=== PATIENT | male | born 1935 ===

== ENCOUNTER 2018-01-09 14:31 | Inpatient (IN) | payer MEDICARE, OTHER ==
[2018-01-09 14:39] VITALS: BMI 28.3
[2018-01-09] MEDS ORDERED: Morphine 4 mg/ml ISec IVP STA ×2 (15:01→17:19)
[2018-01-09] MEDS ORDERED: Sodium Chloride 0.9% 1,000 ML IV STA (15:01)
--- NOTE | 2018-01-09 15:06 | ED PDOC ---
Arrival/HPI - General Chief Complaint: Abdominal Pain Time Seen by Provider: 01/09/18 14:55 Historian: Patient - History of Present Illness Narrative History of Present Illness (Text): 01/09/18 15:04 pt p/w + sudden onset of left lower abd/groin region pain, at times the pain moves to lower left groin; pt states he has mild bowel/urinary urgency with the left groin/abd pain; pt states whenever he is moving/changing positions, severe left groin pain is noted at 10/10; pt went to see his PCP prior to ED arrival, and was instructed to come to ED for further eval; pt states no prior problems before; pt states no fever/chills/sweats, no cp/sob/palpitations, no vomiting, faint nausea, no numbness/tingling, no bowel changes/urinary changes, no gross bleeding, no fall/trauma/sick contact, no traveling auditor last BM was this morning pt denied rashes pt denied dizziness/LOC pt denied other complaints pt is here for further eval PCP: DR Paige Time/Duration: 24 hours Symptom Onset: Sudden Symptom Course: Unchanged Quality: Stabbing Severity Level: 10, Severe Activities at Onset: Rest, Other (with movement/exertion) Context: Home Past Medical History - Provider Review Nursing Documentation Reviewed: Yes - Travel History Have you recently traveled outside [place] w/in the past 3 mons?: No - Past History Past History: No Previous - Infectious Disease Hx of Infectious Diseases: None - Tetanus Immunization Tetanus Immunization: Unknown - Reproductive Currently Lactating: No - Cardiac Hx Hypertension: Yes Family/Social History - Physician Review Nursing Documentation Reviewed: Yes Family/Social History: No Known Family HX Smoking Status: Never Smoked Hx Alcohol Use: No Hx Substance Use: No Hx Substance Use Treatment: No Allergies/Home Meds Allergies/Adverse Reactions: Allergies No Known Allergies Allergy (Verified 06/21/16 13:35) Home Medications: Home Meds Medication Instructions Recorded Confirmed Allopurinol [Zyloprim] 100 mg PO DAILY 06/21/16 06/21/16 Methotrexate 10 mg PO QWK 06/21/16 06/21/16 Tamsulosin [Flomax] 0.4 mg PO DAILY 06/21/16 06/21/16 Review of Systems - Review of Systems Constitutional: Normal Eyes: Normal ENT: Normal Respiratory: Normal Cardiovascular: Normal Gastrointestinal: Abdominal Pain, Nausea Genitourinary Male: Normal Musculoskeletal: Normal Skin: Normal Neurological: Normal Endocrine: Normal Hemo/Lymphatic: Normal Psychiatric: Normal Physical Exam Vital Signs Reviewed: Yes Vital Signs Temp Pulse Resp BP Pulse Ox 01/09/18 17:05 96 H 18 172/84 H 95 01/09/18 14:59 98.8 F 105 H 19 182/93 H 95 Temperature: Afebrile Blood Pressure: Hypertensive Pulse: Tachycardic Respiratory Rate: Normal Appearance: Positive for: Well-Appearing, Non-Toxic, Uncomfortable, Other ( resting in bed, uncomfortable, moderate distress due to pain during examination ; alert/awake, cooperative, follows command with ease) Pain Distress: Moderate Mental Status: Positive for: Alert and Oriented X 3 - Systems Exam Head: Present: Atraumatic, Normocephalic Pupils: Present: PERRL, Other (no nystagmus, no photophobia, sclera anicteric) Extroacular Muscles: Present: EOMI Conjunctiva: Present: Normal Ears: Present: Normal Mouth: Present: Moist Mucous Membranes, Other (poor dentitions, no drooling/ stridor, no exudate/lesions, uvula/tongue are midline) Pharnyx: Present: Normal Nose (External): Present: Atraumatic Nose (Internal): Present: Normal Inspection Neck: Present: Normal Range of Motion, Trachea Midline, Other (no step off, no nuchal rigidity, no meningeal signs). No: Meningeal Signs, MIDLINE TENDERNESS Respiratory/Chest: Present: Clear to Auscultation, Good Air Exchange, Other ( CTA b/l, no w/r/r, no accessory muscle use noted, no tachypenia). No: Respiratory Distress, Accessory Muscle Use Cardiovascular: Present: Regular Rate and Rhythm, Normal S1, S2. No: Murmurs Abdomen: Present: Tenderness (left groin/lower abd region, no masses noted, no rebound/guarding), Normal Bowel Sounds, Other (well nourished male, + left lower groin tenderness, no lesions/masses/rebound/guarding/rigidity, no salvador' s sign, no mcburnye's point tenderness) Back: Present: Normal Inspection. No: CVA Tenderness, Midline Tenderness Upper Extremity: Present: Normal Inspection, Normal ROM, NORMAL PULSES, Neurovascularly Intact, Capillary Refill < 2s Lower Extremity: Present: Normal Inspection, Edema (b/l lower ext pitting edema +1/5, no connie's sign), NORMAL PULSES, Normal ROM, Neurovascularly Intact, Capillary Refill < 2 s Neurological: Present: GCS=15, CN II-XII Intact, Speech Normal Skin: Present: Warm, Normal Color, Other (cap refill < 1sec, no ulcerations, no petechiae, no rashes) Psychiatric: Present: Alert, Oriented x 3 Medical Decision Making ED Course and Treatment: 01/09/18 15:10 Impression: left groin pain/flank pain i have consider all the differential diagnosis regarding pt's chief medical complaints/clinical findings, including but are not limited to: left groin/ flank pain A/P: left groin/flank pain - labs - iv - ct - ua - supportive care - observe/reevaluation 01/09/18 17:05 pt continues to have left lower abd pain pt has not felt improved pt/family are made aware of pt's medical results agrees with admission/hospitalization 01/09/18 17:10 Dr Angel Paige is at bedside, evaluated patient, agrees with ED mgt/txt (yip placement), would like 1 dose of 40mg lasix while in the ED provided for the patient, and reassess h/h in the morning if the patient would need transfusion; will admit patient to his service and consult Dr Hallman (nephro) Re-evaluation Time: 15:16 Reassessment Condition: Unchanged - Lab Interpretations Lab Results: 01/09/18 15:35 01/09/18 15:35 Lab Results 01/09/18 15:35: pO2 224 H, VBG pH 7.12 L*, VBG pCO2 59.0, VBG HCO3 19.2 L, VBG Total CO2 21.0 L, VBG O2 Sat (Calc) 98.7 H, VBG Base Excess -10.7 L, VBG Potassium > 20.0 H*, Sodium 129.0 L, Chloride 103.0, Glucose 127 H, Lactate 1.8 , FiO2 21.0, Venous Blood Potassium > 20.0 H* 01/09/18 15:35: Sodium 139, Chloride 100, Potassium 4.6, Carbon Dioxide 21, Anion Gap 22 H, BUN 62 H, Creatinine 5.3 H, Est GFR ( Amer) 13, Est GFR ( Non-Af Amer) 10, Random Glucose 125 H, Calcium 9.7, Total Bilirubin 0.3, AST 30 , ALT 24, Alkaline Phosphatase 57, Total Protein 7.5, Albumin 4.3, Globulin 3.2 , Albumin/Globulin Ratio 1.3, Lipase 672 H 01/09/18 15:35: PT 11.9, INR 1.04, APTT 33.9 01/09/18 15:35: WBC 10.3 D, RBC 2.45 L, Hgb 8.4 L D, Hct 24.6 L, MCV 100.4, MCH 34.3, MCHC 34.1, RDW 14.4, Plt Count 190, MPV 10.6, Gran % 81.6 H, Lymph % ( Auto) 10.6 L, [place] % (Auto) 6.6 H, Eos % (Auto) 1.1 L, Baso % (Auto) 0.1, Gran # 8.38 H, Lymph # (Auto) 1.1 L, [place] # (Auto) 0.7 H, Eos # (Auto) 0.1, Baso # ( Auto) 0.01 01/09/18 15:05: Urine Color Yellow, Urine Appearance Sl cloudy, Urine pH 6.0, Ur Specific [place] 1.020, Urine Protein >=300 H, Urine Glucose (UA) 100 H, Urine Ketones Negative, Urine Blood Trace-intact H, Urine Nitrate Negative, Urine Bilirubin Negative, Urine Urobilinogen 0.2, Ur Leukocyte Esterase Negative , Urine RBC Negative, Urine WBC 1 - 3, Ur Epithelial Cells 0 - 2 I have reviewed the lab results: Yes Interpretation: Abnormal lab values (decr H/H; abnl Bun/creat (worse)) - RAD Interpretation Narrative RAD Interpretations (Text): Report Date : 01/09/2018 15:54:12 PROCEDURE: CT Abdomen and Pelvis without intravenous contrast Dictator : Karen Soliman MD IMPRESSION: 1. No acute abdominal or pelvic abnormality. Fat containing left inguinal hernia. 2. No evidence of nephrolithiasis or obstructive uropathy. 3. Multilevel degenerative disc disease, worse at L4-5 with degenerative grade 1 anterior listhesis of L4 on L5. Radiology Orders: 01/09/18 15:02 ABD & PELVIS W/O PO OR IV CONT [CT] Stat Cook Dinner: Radiologist - Medication Orders Current Medication Orders: Sodium Chloride (Sodium Chloride 0.9%) 1,000 mls @ 100 mls/hr IV .Q10H STA Stop: 01/10/18 01:00 Last Admin: 01/09/18 15:14 Dose: 100 mls/hr eMAR Start Stop Document 01/09/18 15:14 RG (Rec: 01/09/18 15:15 [id number] Intravenous Solution Start Date 01/09/18 Start Time 15:14 Discontinued Medications Morphine Sulfate (Morphine) 4 mg IVP STAT STA Stop: 01/09/18 15:02 Last Admin: 01/09/18 15:13 Dose: 4 mg MAR Pain Assessment Document 01/09/18 15:13 RG (Rec: 01/09/18 15:14 [id number] Pain Reassessment Is this a pain reassessment? Yes Presence of Pain Presence of Pain Yes Location Left, Right or Bilateral Left Description Description Constant Pain Behavior Guarding Irritability IVP Administration Document 01/09/18 15:13 RG (Rec: 01/09/18 15:14 [id number] Charges for Administration # of IVP Administrations 1 Ondansetron HCl (Zofran Inj) 4 mg IVP STAT STA Stop: 01/09/18 15:02 Last Admin: 01/09/18 15:14 Dose: 4 mg IVP Administration Document 01/09/18 15:14 (Rec: 01/09/18 15:14 [id number][facility] Charges for Administration # of IVP Administrations 1 Disposition/Present on Arrival - Present on Arrival Any Indicators Present on Arrival: No History of DVT/PE: No History of Uncontrolled Diabetes: No Urinary Catheter: No History of Decub. Ulcer: No History Surgical Site Infection Following: None - Disposition Have Diagnosis and Disposition been Completed?: Yes Diagnosis: Acute on chronic renal insufficiency, Anemia, Intractable abdominal pain, Weakness, Acute pancreatitis, Elevated blood pressure reading Disposition: HOSPITALIZED Disposition Time: 17:10 Patient Plan: Admission, Telemetry Patient Problems: Current Active Problems Problem Status Onset Acute on chronic renal insufficiency Acute Anemia Acute Intractable abdominal pain Acute Weakness Acute Condition: STABLE Discharge Instructions (ExitCare): Weakness (ED), Hypotension (ED), Hypertension (ED) Referrals: Jagdish Paige MD [Primary Care Provider] - Follow up with primary Forms: [employer] ([place])
[2018-01-09 15:35] LABS: URINE BILIRUBIN NEGATIVE (NEGATIVE); URINE BLOOD TRACE-INTACT (NEGATIVE); URINE GLUCOSE (UA) 100 mg/dL (NEGATIVE); URINE LEUKOCYTE ESTERASE NEGATIVE Leu/uL (NEGATIVE); URINE PROTEIN >=300 mg/dL (<30 mg/dL); URINE UROBILINOGEN 0.2 E.U./dL (<1 E.U./dL)
[2018-01-09 15:37] LABS: URINE APPEARANCE SL CLOUDY (CLEAR); URINE COLOR YELLOW (YELLOW)
[2018-01-09 15:40] LABS: VENOUS BLOOD GAS BASE EXCESS -10.7 mmol/L (0.0-2.0); VENOUS BLOOD GAS PO2 224 mm/Hg (30-55)
[2018-01-09 15:41] LABS: BASO # 0.01 K/mm3 (0.0-2.0); BASO % 0.1 % (0.0-3.0); EOS # 0.1 (0.0-0.7); EOS % 1.1 % (1.5-5.0); GRAN # 8.38 (1.4-6.5); GRAN % 81.6 % (50.0-68.0); HEMOGLOBIN 8.4 g/dL (14.0-18.0); LYMPH # 1.1 (1.2-3.4); LYMPH % 10.6 % (22.0-35.0); MEAN CELL VOLUME 100.4 fl (80.0-105.0); MEAN CORPUSCULAR HEMOGLOBIN 34.3 pg (25.0-35.0); MEAN CORPUSCULAR HGB CONC 34.1 g/dl (31.0-37.0); MEAN PLATELET VOLUME 10.6 fl (7.0-11.0); MONO # 0.7 (0.1-0.6); MONO % 6.6 % (1.0-6.0); RBC 2.45 10^6/uL (3.5-6.1); RED CELL DISTRIBUTION WIDTH 14.4 % (11.5-14.5); WHITE BLOOD COUNT 10.3 10^3/ul (4.5-11.0)
[2018-01-09 15:48] LABS: URINE EPITHELIAL CELLS 0 - 2 /hpf (0-5); URINE RBC NEGATIVE /hpf (0-2)
[2018-01-09 15:49] LABS: PROTHROMBIN TIME 11.9 SECONDS (9.4-12.5)
[2018-01-09 15:50] LABS: INR 1.04 (0.93-1.08); PARTIAL THROMBOPLASTIN TIME 33.9 Seconds (25.1-36.5)
[2018-01-09 15:52] LABS: ALB/GLOB RATIO 1.3 (1.1-1.8); ALBUMIN 4.3 g/dL (3.0-4.8); CALCIUM 9.7 mg/dL (8.4-10.5)
[2018-01-09 15:53] LABS: VENOUS BLOOD PH 7.12 (7.32-7.43)
--- NOTE | 2018-01-09 15:55 | CT ---
PROCEDURE: CT Abdomen and Pelvis without intravenous contrast HISTORY: Severe left lower groin pain, r/o stones? COMPARISON: None. TECHNIQUE: CT scan of the abdomen and pelvis was performed without administration of intravenous contrast. Oral contrast was not administered. Coronal and sagittal reformatted images were obtained. Radiation dose: Total exam DLP = Total exam DLP = 468.44 mGy-cm. This CT exam was performed using one or more of the following dose reduction techniques: Automated exposure control, adjustment of the mA and/or kV according to patient size, and/or use of iterative reconstruction technique. FINDINGS: LOWER THORAX: The visualized right lung is clear. There is patchy airspace disease in the left lower lobe and small left pleural effusion LIVER: The liver is normal in size. There are simple in the hepatic dome and right lobe, the largest in the right lobe measures 2.7 cm. GALLBLADDER AND BILE DUCTS: There are no calcified gallstones. . PANCREAS: Normal in size without ductal dilatation or calcifications. SPLEEN: Normal in sinus. ADRENALS: No discrete nodule. KIDNEYS AND URETERS: There is mild bilateral renal cortical atrophy. No hydronephrosis or nephrolithiasis. There are simple cortical cysts in both kidneys, the largest in the right lower pole measures 4.4 x 2.9 cm. VASCULATURE: No aortic aneurysm. BOWEL: The small bowel loops are normal in caliber. The colon is unremarkable. No bowel dilatation or obstruction. APPENDIX: Normal appendix. PERITONEUM: No free fluid. No free air. LYMPH NODES: No enlarged lymph nodes. BLADDER: Grossly normal in appearance. REPRODUCTIVE: There is mild enlargement of the prostate gland. BONES: No acute fracture. Multilevel degenerative disc disease, worse at L4-5 with degenerative grade 1 anterior listhesis of L4 on L5. OTHER FINDINGS: There is a fat containing left inguinal hernia. IMPRESSION: 1. No acute abdominal or pelvic abnormality. Fat containing left inguinal hernia. 2. No evidence of nephrolithiasis or obstructive uropathy. 3. Multilevel degenerative disc disease, worse at L4-5 with degenerative grade 1 anterior listhesis of L4 on L5.
[2018-01-09] MEDS: Sodium Chloride 0.45% 1,000 ML IV SCH (20:58)
[2018-01-09 21:24] LABS: CREATININE,RANDOM URINE 22 mg/dL
[2018-01-09 21:41] LABS: IRON 20 ug/dL (45-180)
--- NOTE | 2018-01-09 21:47 | CON ---
DATE: 01/09/2018 The patient admitted for Dr. Jagdish Paige. REFERRING PHYSICIAN: Dr. Paige. REASON FOR CONSULTATION: Evaluation of the patient known to me from outpatient followup with a history of chronic kidney disease stage III, who presents with acute renal failure. HISTORY OF PRESENT ILLNESS: The patient is a pleasant 82-year-old [place] male who spent most of the winter in the [facility]. The patient had returned home, had blood work which was done which showed a creatinine well above his baseline levels. The patient has a history of chronic kidney disease stage III with a baseline creatinine in the mid to upper 2 range. History of hypertension, history of hypertensive nephrosclerosis, history of gout; history of BPH, on Flomax therapy; history of hyperlipidemia, history of anemia secondary to chronic kidney disease, history of secondary hyperparathyroidism, history of rheumatoid arthritis, who states he has been doing relatively well. He had routine blood work which showed an elevated creatinine into the [address] Paige and I spoke about this and we suggested that the patient come to the hospital for evaluation. The patient only presented to the hospital after having significant left lower quadrant pain. He was noted in the emergency room today to have a BUN of 62 with a creatinine of 5.3, double his baseline levels. The patient denies taking any anti-inflammatories or nonsteroidals. He has had no recent contrast or dye studies. He does take medications for rheumatoid arthritis given to him by his hog sticker, but he denies taking any anti-inflammatories. He had used methotrexate in the past, and he is using a sulfa containing medication at present. The patient states that he has not noted any decline in urine output. He has no uremic symptoms. He is not taking any BROOKS inhibitors or angiotensin receptor blockers. We are asked to help evaluate the patient for his acute renal failure. A CT of the abdomen and pelvis was done through the emergency room, which showed no active nephrosis. Renal cortical atrophy. No acute abdominal pelvic abnormality. He does have a fat containing left inguinal hernia. He does have multilevel degenerative disk disease in the lumbar spine. PAST MEDICAL HISTORY: Significant for chronic kidney disease stage III, thought to be secondary to hypertensive nephrosclerosis. A 24-hour urine was done in 2017, showed a creatinine clearance of 30 mL per minute with 1.14 g of protein in the urine. Renal artery Doppler studies were negative in 2017. His cystatin C clearance in 2017 was 32 mL per minute. Full serologies were done, which showed a positive rheumatoid factor consistent with his known diagnosis of rheumatoid arthritis, a mild elevation of his P-ANCA titer. Remainder of the serologies were negative. History of anemia secondary to chronic kidney disease, hyperlipidemia; BPH, on Flomax therapy; history of gout, with no recent attacks, on allopurinol therapy; history of secondary hyperparathyroidism, and history of hypertension with hypertensive nephrosclerosis. MEDICATIONS AT HOME: Include that of Flomax, Norvasc, Symbicort, Lasix 20 mg a day, and allopurinol 150 mg a day. The patient is off methotrexate and he does take other medications for his rheumatoid arthritis, possibly a sulfa based medication. ALLERGIES: THE PATIENT HAS NO KNOWN ALLERGIES TO MEDICATIONS. SOCIAL HISTORY: No history of cigarette smoking. History of alcohol use. 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 FAMILY HISTORY: Positive for stroke and hypertension. No history of chronic kidney disease. REVIEW OF SYSTEMS: GENERAL: The patient states appetite has been reduced over the last several days but no significant weight loss. ENT: Denies any hearing or visual problems. PULMONARY: No shortness of breath. No COPD. No emphysema, bronchitis or pneumonia. CARDIAC: No known history of coronary artery disease. GASTROINTESTINAL: Abdominal pain as noted above. Loose stools x1 day, but no diarrhea. In general, no constipation. No nausea or vomiting. GENITOURINARY: History of chronic kidney disease, stage III as a baseline, history of BPH. ENDOCRINE: No history of diabetes. Positive history of secondary hyperparathyroidism. MUSCULOSKELETAL: DJD, lumbar sacral spine. NEUROLOGICAL: No history of CVA, TIA, seizures or syncope. HEMATOLOGY ONCOLOGY: History of anemia secondary to chronic kidney disease. PSYCHIATRIC: History is negative. PHYSICAL EXAMINATION: GENERAL: The patient is currently seen in the emergency room, lying on a stretcher, with family at the bedside. VITAL SIGNS: Blood pressure presently is 145/87; when he came into the emergency room, it was 182/93. Temperature 98.8. Respiratory rate 19, pulse ox of 95%. HEENT: Exam shows him to be normocephalic, atraumatic. Conjunctivae are pale. Sclerae nonicteric. Pupils equal, round and reactive to light and accommodation. Extraocular muscles are intact. Posterior pharynx is normal. NECK: Supple. No neck vein distention. No thyromegaly. No lymphadenopathy. No bruits. CHEST: Clear to auscultation and percussion. No rales or rhonchi or wheezing. CARDIOVASCULAR: Shows a regular rate and rhythm, without murmurs, rubs or gallops. No S3. No S4. BACK: No CVAT. No spinal tenderness. ABDOMEN: Mild discomfort on palpation of left lower quadrant. No rebound or guarding. Mild to moderate distention. GENITOURINARY: Bustos catheter in place. EXTREMITIES: Show no lower extremity cyanosis, clubbing or edema. Distal lower extremity pulses are 1 to 2+ plus bilaterally. NEUROLOGICAL: Shows him to be alert and oriented x3, with no gross focal motor or sensory deficits. No asterixis. LABORATORY DATA AND IMAGING: Abdominal and pelvic CT scan showed bilateral cortical atrophy consistent with chronic medical renal disease, possibly secondary to known hypertensive nephrosclerosis, no hydronephrosis. Left inguinal hernia. DJD of lumbosacral spine. No chest x-ray is available for comment. Labs, CBC, white blood cell count 10.3, hemoglobin low at 8.4, platelet count is 190,000. Coags are normal. Blood gas showed a venous blood gas at 7.12, with a pO2 of 224, bicarbonate of 19. Lactate level was 1.8. Chemistries showed a sodium of 139, potassium 4.6, chloride 100, with a CO2 of 21. Anion gap was 22, BUN 62, with a baseline BUN in the low 40 range. Creatinine 5.3, with a baseline creatinine in the mid the 2 to 2.7 range. Glucose 125. Calcium 9.7. Liver enzymes are normal. Bilirubin is normal. Albumin is 4.3. Lipase is mildly elevated at 672. Urine, 4+ protein. One to 3 white blood cells per high-power field; no red blood cells. Microbiology, no specimens available for comment. ASSESSMENT: 1. Acute renal failure superimposed on chronic kidney disease, stage III. This is in a patient, who was clinically felt to have a history of stable hypertensive nephrosclerosis. The patient's CT scan of his kidneys are consistent with that diagnosis. He has bilateral cortical atrophy secondary to longstanding hypertension. It is uncertain what has caused his creatinine to double since his last stable baseline lab back in July 2017 when creatinine was in the 2.5 to 2.7 range. The patient had been receiving different medications through his hog sticker, but we are not certain what these medications are. The patient had been on methotrexate in the past, this has been discontinued. He is taking a sulfa containing compound. Perhaps he has acute interstitial nephritis secondary to medication. I will obtain a urine [place] stain; however, there are no white blood cells in his urine. The patient in the outpatient setting did have a positive P-ANCA; I will repeat these studies along with complement values, along with a rheumatoid factor, along with an ASHLYN. Perhaps the patient has a progressive form of glomerular nephritis, but again this is less likely. There is no evidence for obstructive uropathy. I agree with starting the patient on IV fluid hydration, but this does not appear to be dehydration. I will obtain urine lytes and urine [place] stain. Once the patient's creatinine hits the baseline, we will obtain 24-hour urine to establish his renal reserve. 2. History of hypertension. The patient may be treated with calcium channel moses therapy. Avoid angiotensin-converting enzyme inhibitors, angiotensin receptor blockers. 3. History of gout. The patient may be given low-dose allopurinol 100 mg a day if necessary. 4. History of benign prostatic hypertrophy. No evidence for urinary retention, and no evidence for obstructive uropathy. 5. History of hyperlipidemia. The patient is on diet therapy alone. He is not receiving statin therapy. 6. History of anemia. This has worsened with his worsening renal parameters. This is likely secondary to chronic kidney disease. Obtain iron, TIBC, ferritin, B12, folate. We will start the patient on oral iron therapy and on Aranesp. 7. History of secondary hyperparathyroidism. Obtain a vitamin D level and PTH level, and if phosphorus levels are elevated, start the patient on binder therapy. 8. History of rheumatoid arthritis. The patient will bring in his outpatient medication given to him by his hog sticker. PLAN: 1. Follow accurate I's and O's. 2. Daily labs. 3. Discussed with the patient and his family, the possibility of considering renal replacement therapy should his BUN and creatinine continued to worsen. 4. It is unlikely that doing a renal biopsy will be helpful as the patient has significant cortical atrophy. However, this is a possibility pending results from serologies. 5. Continue calcium channel moses therapy for blood pressure control and again avoid BROOKS inhibitors, angiotensin receptor blockers. 6. Agree with IV fluid hydration. 7. Iron and Aranesp as noted above. 8. Close renal followup. 9. I had discussed this case with Dr. Paige prior to the patient's admission to the hospital. Thank you for letting me partake and share in the care of our mutual patient. Tirso Malone MD
[2018-01-09 21:50] LABS: % IRON SATURATION 9 % (20-55); TOTAL IRON BINDING CAPACITY 227 ug/dL (261-462)
[2018-01-10 06:16] LABS: ALB/GLOB RATIO 1.3 (1.1-1.8); ALBUMIN 3.5 g/dL (3.0-4.8); CALCIUM 9.1 mg/dL (8.4-10.5)
[2018-01-10 06:21] LABS: BASO # 0.01 K/mm3 (0.0-2.0); BASO % 0.1 % (0.0-3.0); EOS # 0.2 (0.0-0.7); EOS % 2.1 % (1.5-5.0); GRAN # 6.27 (1.4-6.5); GRAN % 73.3 % (50.0-68.0); HEMOGLOBIN 7.3 g/dL (14.0-18.0); LYMPH # 0.9 (1.2-3.4); MEAN CELL VOLUME 101.4 fl (80.0-105.0); MEAN CORPUSCULAR HEMOGLOBIN 33.5 pg (25.0-35.0); MEAN PLATELET VOLUME 11.1 fl (7.0-11.0); MONO # 1.2 (0.1-0.6); MONO % 13.5 % (1.0-6.0); PLATELET COUNT 196 10^3/uL (120.0-450.0); RBC 2.18 10^6/uL (3.5-6.1); RED CELL DISTRIBUTION WIDTH 14.6 % (11.5-14.5); WHITE BLOOD COUNT 8.6 10^3/ul (4.5-11.0)
[2018-01-10 06:28] LABS: FREE T4 1.78 ng/dL (0.78-2.19)
[2018-01-10] MEDS ORDERED: Albuterol-Ipratrop 3 mg / 0.5 (3 ml) UD IH PRN (09:05)
[2018-01-10] MEDS: Iron Complex Polysacch 150mg Cap PO SCH (09:17)
[2018-01-10] MEDS: Sodium Chloride 0.45% 1,000 ML IV SCH (09:20)
[2018-01-10] MEDS ORDERED: Darbepoetin Alfa 60 mcg/ml Inj SC ONE (10:00)
[2018-01-10 11:52] LABS: COMPLEMENT C4 41.4 mg/dL (14.0-44.0)
[2018-01-10] MEDS ORDERED: Sodium Chloride 0.9% 1,000 ML IV SCH (12:00)
[2018-01-10] MEDS ORDERED: metOLazone 5 MG TAB PO SCH (12:00)
[2018-01-10] MEDS ORDERED: Sodium Chloride 0.45% 1,000 ML IV SCH (13:00)
[2018-01-10 13:03] LABS: FOLATE > 20.0 ng/mL
[2018-01-10] MEDS ORDERED: Pneumococcal 23-Valent Vaccine IM ONE (13:24)
--- NOTE | 2018-01-10 19:11 | PN ---
DATE: 01/10/2018 SUBJECTIVE: The patient is seen lying in bed. He is in [id number] respiratory distress. He is on nasal cannula. He complains of shortness of breath on exertion. He complains of some nausea. He denies any vomiting. PHYSICAL EXAMINATION: GENERAL: Elderly male lying in bed. Vital signs: Blood pressure 160/87, heart rate 92, respiratory rate 20, temperature 98.6. HEENT: Normocephalic, atraumatic, positive pallor. NECK: Supple, no JVD. LUNGS: Bilateral equal air entry, bilateral equal expansion, no rales. CARDIAC: S1, S2, regular rate and rhythm, no murmur, no rub. ABDOMEN: Obese, distended, soft, nontender, bowel sounds present. EXTREMITIES: No lower extremity edema. INTAKE AND OUTPUT: Not charted. LABORATORY DATA: WBC 8.6, hemoglobin 7.3, hematocrit 22, platelets 196. Sodium 136, potassium 4.3, chloride 101, CO2 of 25, BUN 64, creatinine 5.4, glucose 130, calcium 9.1, phosphorus 6.5, magnesium 1.8. Iron saturation 9, iron 20, ferritin 302. Albumin 3.5, globulin 2.8. Amylase 168, lipase 453. Vitamin D 20. Urinalysis: Yellow, slightly cloudy, pH 6, specific 1.020, protein greater than 300, glucose 100, blood trace intact, nitrite negative, leukocyte esterase negative. Urine eosinophils negative, urine creatinine 22, urine sodium 108. T3 of 133, T4 of 141. CT of the abdomen and pelvis, no acute abdominal or pelvic abnormality, no evidence of nephrolithiasis or obstructive uropathy, multilevel disk degeneration. CURRENT MEDICATIONS: Iron, Lasix 40 IV daily given this morning, amlodipine 5, half-normal saline at 60, Aranesp 60 mcg given this morning, Lasix 40 mg IV push given last night. ASSESSMENT: 1. Acute kidney injury superimposed on chronic kidney disease stage III/IV. 2. Acute on chronic anemia. 3. Secondary hyperparathyroidism. 4. History of rheumatoid arthritis. 5. Left lower quadrant pain. 6. History of hypertension. 7. History of gout. 8. History of benign prostatic hypertrophy. PLAN: 1. Currently unclear etiology of acute kidney injury, appears to be ATN. We will order nuclear renal scan. 2. Discontinue IV fluids since the patient is in modest respiratory distress. 3. Continue IV Lasix daily. 4. Get outpatient records from Rheumatology. 5. Avoid nephrotoxins. 6. Avoid hypotension. 7. Discussed with patient, may need renal replacement therapy. 8. I will start him on intravenous iron. 9. The patient received Aranesp yesterday. 10. Follow up workup sent for vasculitis. 11. Check intact PTH levels. Lucy Thomson MD
--- NOTE | 2018-01-10 22:11 | CARD ---
APPROVED REPORT EKG Measurement Heart [id number] <Conclusion> Sinus rhythm with 1st degree AV block Anterior infarct, age undetermined Abnormal ECG
--- NOTE | 2018-01-10 23:13 | PN ---
DATE: DAILY PROGRESS NOTE I would like the progress note to be read as follows, if you would be so kind. SUBJECTIVE: The patient is an 82-year-old male who presented to the emergency room yesterday complaining of sudden onset of left lower abdominal/groin pain. The pain was rather severe. The patient rated it as 10/10. He was also found to be in acute renal failure, therefore, the patient was admitted. When seen today, Monday, the patient is receiving a blood transfusion as his hemoglobin on admission was 8.3 yesterday, this morning fell to 7.3, so receiving 2 units of packed red blood cells. The patient is sleeping comfortably, but easily arousable. He denies any further abdominal pain. He says the pain simply comes and goes and at this moment, he is comfortable. His lungs show diffuse rales bilaterally one-half to three quarters to the way up. His heart is regular. Abdomen is soft and nontender. There is no right or left lower quadrant tenderness today as opposed to yesterday. He is afebrile. Blood pressure is 150/85 and heart rate is 91. He is currently receiving his second unit of packed red blood cells. The patient received 40 mg of Lasix earlier today. He is receiving 20 mg of Lasix prior to each unit of blood to be transfused. Of note is the amylase and lipase is also elevated on admission, the amylase of 168 and lipase of 453. CAT scan of the abdomen showed no acute abdominal or pelvic abnormality. There was a fat-containing left inguinal hernia. There was no evidence of nephrolithiasis or obstructive uropathy. There was multilevel degenerative disk disease worse at L4-L5 with a degenerative grade 1 anterolisthesis on L4-L5. There were simple cysts found and both kidneys. The largest was in the right lower pole measuring 4.4 x 2.9 cm, so the patient is being transfused for now. Workup is still in progress. Renal consultation has been requested of Dr. Malone. Davy Paige MD
[2018-01-11 06:33] LABS: MEAN CORPUSCULAR HEMOGLOBIN 32.6 pg (25.0-35.0); MEAN CORPUSCULAR HGB CONC 34.1 g/dl (31.0-37.0); MEAN PLATELET VOLUME 10.8 fl (7.0-11.0); RBC 2.88 10^6/uL (3.5-6.1); WHITE BLOOD COUNT 6.7 10^3/ul (4.5-11.0)
[2018-01-11 06:41] LABS: HEMOGLOBIN 9.4 g/dL (14.0-18.0); MEAN CELL VOLUME 95.8 fl (80.0-105.0)
[2018-01-11 07:33] LABS: ALB/GLOB RATIO 1.1 (1.1-1.8); ALBUMIN 3.3 g/dL (3.0-4.8); CALCIUM 9.3 mg/dL (8.4-10.5)
--- NOTE | 2018-01-11 08:36 | HP ---
CHIEF COMPLAINT: Left lower quadrant discomfort and acutely worsening renal failure. HISTORY OF PRESENT ILLNESS: This is a pleasant 82-year-old [place] man I have known for many years, who was seen in the office approximately 2 weeks ago. Blood work at that time showed a rise in his BUN from the baseline of 2.4 up to 4.1. The patient was volume overloaded, complaining of some exertional dyspnea, shortness of breath. He was advised admission to the hospital, but declined, so attempts were made treating him on an outpatient basis, by increasing his Lasix and close followup. He was seen again 4 days later. Labs were drawn. Creatinine is 5.1. I spoke with the patient today, he was feeling poorly with left-sided lower quadrant abdominal pain and therefore admission was advised for further evaluation workup. PAST MEDICAL HISTORY: Significant for hypertension for many years and rheumatoid arthritis. He was on methotrexate and doing rather well. Approximately 1 year ago, when his BUN and creatinine started to raise, creatinine peaked over 2, the methotrexate was discontinued. He was started on a sulfa-based agent by his it sales consultant. He was seen by Renal and followed periodically. The treatment at that times consisted mostly of avoiding nephrotoxic agents. He reports no new changes in his lifestyle or eating pattern. He did not take any recent antiinflammatory medicines. Past history is also significant for benign prostatic hypertrophy and a distant history of the gout. CURRENT MEDICATIONS: At home include Flomax; Norvasc; furosemide 20 mg now raised to 60 mg daily and allopurinol. He also takes a sulfa-based RA medicine. He recently took friend's Symbicort, Spiriva, and montelukast. On the recommendation of his thinking that his respiratory symptoms were more asthma related , not volume overload. ALLERGIES: HE HAS NO KNOWN ALLERGIES TO MEDICATIONS. SOCIAL HISTORY: He does not smoke or drink alcohol, although there is a history of smoking in the distant past. 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 REVIEW OF SYSTEMS: Significant only for rheumatoid arthritis as noted above. PHYSICAL EXAMINATION: GENERAL: Patient was seen in the emergency room this evening. He is awake, alert, clear and appropriate. His family as the is at the bedside. HEAD AND NECK: Unremarkable. Conjunctivae are pink. Mucous membranes are moist. Neck is supple without masses. LUNGS: Show good aeration, right and left with basilar rales bilaterally. HEART: Regular. Not tachycardic. ABDOMEN: Somewhat overweight and protuberant. There is no bladder dullness to percussion and I cannot palpate the bladder, although on CAT scan it appears a bit distended. EXTREMITIES: Show trace +1 soft edema, both lower extremities up to the thigh, which is an improvement from 8 days ago on initial presentation. IMPRESSION: 1. Abdominal pain and left lower quadrant pain. 2. Umbilical hernia noted on CT scan. 3. Acute worsening of renal function with volume overload. 4. Hypertension. 5. Rheumatoid arthritis. 6. Gout. 7. Benign prostatic hypertrophy. PLAN: The patient was admitted to the medical floor, diuretics would be given. Surgical consult for abdominal pain and Renal consult would be called. I doubt any surgical intervention would be needed to address this umbilical hernia, but more for the purpose of the abdominal symptoms. I will discuss the case with Dr. Vanessa tomorrow. We will follow the lead from Renal regarding the workup of his acute change in renal status. We will add Bustos catheter just to rule out any obstructive uropathy factors. Jagdish Paige MD MTDD
[2018-01-11] MEDS: Iron Complex Polysacch 150mg Cap PO SCH (09:28)
--- NOTE | 2018-01-11 11:41 | RAD ---
HISTORY: chest congestion, COMPARISON: Chest radiographs 01/03/2018. FINDINGS: LUNGS: Patchy infiltrate is appreciate the left perihilar region extending inferiorly to the upper segment retrocardiac space. No right-sided infiltrate identified. Elevated right hemidiaphragm again evident. PLEURA: Diminished left pleural effusion. No right pleural effusion. No pneumothorax bilaterally. CARDIOVASCULAR: Cardiomegaly appears stable. Stable pulmonary vascular pattern appears somewhat accentuated by under penetration. OSSEOUS STRUCTURES: No significant abnormalities. VISUALIZED UPPER ABDOMEN: Normal. OTHER FINDINGS: None. IMPRESSION: Interval infiltrate left perihilar and retrocardiac zones with diminished left pleural effusion. No right-sided infiltrate. Stable cardiomegaly.
[2018-01-11] MEDS ORDERED: cefTRIAXone 500 MG in Sodium Chloride 0.9% 50 ML IVPB SCH (16:15)
[2018-01-11 16:24] VITALS: RESP 20
--- NOTE | 2018-01-11 16:28 | NM ---
PROCEDURE: HISTORY: Acute and chronic renal insufficiency. COMPARISON: 02/14/2017 renal ultrasound. Summary of findings on the comparison examination: Bilateral renal cysts measuring up to 4.1 cm on the right 2.2 cm on the left. Echogenic renal parenchyma bilaterally may be seen in setting of medical renal disease. 02/21/2017 renal artery duplex sonography. Summary of findings on the comparison examination: No sonographically significant stenoses identified 01/09/2018. CT abdomen and pelvis. Summary of findings on the comparison examination:There is mild bilateral renal cortical atrophy. No hydronephrosis or nephrolithiasis. There are simple cortical cysts in both kidneys, the largest in the right lower pole measures 4.4 x 2.9 cm TECHNIQUE: 12.4 mCi technetium 99 M Mag 3 FINDINGS: Right Kidney: Flow component: Qualitatively diminished perfusion right kidney. High background is identified. Time to peak: 4.5 minutes Peak to T1/2 Peak: 39 minutes Left Kidney: Flow component: Diminished perfusion of the left kidney compared to the right. High background activity a consistent with a component of renal insufficiency. Time to peak: 5.5 minutes Peak to T1/2 Peak: 41.4 minutes Split Renal Function: Right kidney 52.6 % Left kidney 47.4 % IMPRESSION: Scintigraphic findings consistent with chronic medical renal disease. No evidence of obstructive uropathy. Approximately symmetrical split renal function.
--- NOTE | 2018-01-11 19:09 | PN ---
DATE: 01/11/2018 SUBJECTIVE: The patient is seen lying in bed. He is awake. He is alert. He reports he has not had a bowel movement in 2 days. He complains of some shortness of breath. He denies any nausea, vomiting or diarrhea. He denies any urinary complaints. PHYSICAL EXAMINATION: GENERAL: Elderly male sitting in bed. VITAL SIGNS: Blood pressure 155/86, heart rate 90, respiratory rate 20, temperature 98.4. HEENT: Normocephalic, atraumatic. NECK: Supple, no JVD. LUNGS: Bilateral equal air entry, bilateral equal expansion, no rales. CARDIAC: S1 and S2, regular rate and rhythm, no murmur, no rub. ABDOMEN: Obese, distended, soft, nontender, bowel sounds present. EXTREMITIES: No lower extremity edema. INTAKE AND OUTPUT: 1310/2000. LABORATORY DATA: WBC 6.7, hemoglobin 9.4, hematocrit 28, platelets 159. Sodium 138, potassium 3.9, chloride 101, CO2 25, BUN 66, creatinine 5.7, glucose 85, calcium 9.3, albumin 3.3. Urine eosinophils negative. Urine creatinine 22. Urine sodium 108. Nuclear renal scan showing no evidence of obstructive uropathy, symmetrical function, delayed perfusion, diminished perfusion consistent with chronic medical renal disease. Chest x-ray, interval infiltrate in the left perihilar region. No right-sided infiltrate. CURRENT MEDICATIONS: Ceftriaxone 1 g daily, iron, Lasix 40 IV daily, amlodipine 5, Protonix, Zithromax. The patient received 2 units of blood. ASSESSMENT: 1. Acute kidney injury superimposed on chronic kidney disease stage IV, etiology of acute kidney injury appears to be acute tubular necrosis. 2. Severe anemia, [id number] (?). 3. History of rheumatoid arthritis, recent change in medications (?). 4. Hypertension. 5. Proteinuria. PLAN: 1. Repeat urinalysis. 2. Follow up proteinuria workup ordered by Dr. Malone. 3. Continue Lasix. 4. No uremic signs and symptoms at this time. 5. Continue oral iron, the patient has received 2 units of blood and 200 mg of IV iron, which should be sufficient. 6. Gait records from Rheumatology. Lucy Thomson MD [facility] # [id number]
[2018-01-11] MEDS ORDERED: Vancomycin 1gm in NS 250ml 1 GM/250 ML BAG IVPB STA (22:35)
[2018-01-11] MEDS ORDERED: Cefepime 1gm in NS 100ml 1 GM/100 ML BAG IVPB SCH (22:45)
[2018-01-11 23:32] LABS: URINE BILIRUBIN NEGATIVE (NEGATIVE); URINE BLOOD MODERATE (NEGATIVE); URINE GLUCOSE (UA) 250 mg/dL (NEGATIVE); URINE LEUKOCYTE ESTERASE SMALL Leu/uL (NEGATIVE); URINE PROTEIN >=300 mg/dL (<30 mg/dL); URINE UROBILINOGEN 0.2 E.U./dL (<1 E.U./dL)
[2018-01-11 23:35] LABS: URINE APPEARANCE CLEAR (CLEAR); URINE COLOR YELLOW (YELLOW)
[2018-01-11 23:54] LABS: URINE BACTERIA SMALL (NEG); URINE EPITHELIAL CELLS 0 - 2 /hpf (0-5); URINE WBC 15 - 20 /hpf (0-6)
[2018-01-12] MEDS ORDERED: Pantoprazole 40 mg EC Tab PO SCH (06:00)
[2018-01-12 06:25] LABS: HEMOGLOBIN 9.9 g/dL (14.0-18.0); MEAN CELL VOLUME 96.3 fl (80.0-105.0); MEAN CORPUSCULAR HEMOGLOBIN 33.2 pg (25.0-35.0); MEAN CORPUSCULAR HGB CONC 34.5 g/dl (31.0-37.0); MEAN PLATELET VOLUME 10.2 fl (7.0-11.0); RBC 2.98 10^6/uL (3.5-6.1); RED CELL DISTRIBUTION WIDTH 16.1 % (11.5-14.5)
[2018-01-12 06:54] LABS: ALB/GLOB RATIO 1.2 (1.1-1.8); ALBUMIN 3.5 g/dL (3.0-4.8); CALCIUM 9.2 mg/dL (8.4-10.5)
[2018-01-12] MEDS: Iron Complex Polysacch 150mg Cap PO SCH (09:38)
[2018-01-12] MEDS ORDERED: Magnesium Hydroxide Susp 30 ml UD PO PRN (09:48)
[2018-01-12] MEDS ORDERED: Azithromycin 500MG/NS 250ml 500 MG/250 ML BAG IVPB SCH (10:00)
--- NOTE | 2018-01-12 10:51 | PN ---
DATE: LOCATION: Patient is in room 361. SUBJECTIVE: This morning, he was going down for a nuclear scan. Earlier this morning, a repeat chest x-ray was ordered by nurse practitioner showing an infiltrate. Patient will be started on antibiotics, and Infectious Disease called to consult. I spoke with the patient's at the bedside. We also looked at the results of the scan and discussed with Renal. Obviously, the pneumonia infection will take precedence in first of immediate treatment. I will look at the films with the radiologist to rule out volume overload and CHF since on presentation small bilateral effusions were noted on CT and patient's white count is normal, although despite fevers yesterday. Jagdish Paige MD
--- NOTE | 2018-01-12 12:13 | RAD ---
HISTORY: f/u on infiltrate? vs volume overload COMPARISON: No prior. TECHNIQUE: Chest PA and lateral FINDINGS: LUNGS: Interval improvement and left upper lobe infiltrate apparent on prior study January 11, 2018. PLEURA: No significant pleural effusion identified. No pneumothorax apparent. CARDIOVASCULAR: Cardiomegaly, pulmonary vascular congestion. OSSEOUS STRUCTURES: No significant abnormalities. VISUALIZED UPPER ABDOMEN: Normal. OTHER FINDINGS: None. IMPRESSION: Improving left upper lobe infiltrate. Underlying pulmonary vascular congestion/ cardiomegaly.
[2018-01-12 18:20] VITALS: BP 182/97; PULSE 92; TEMP 99; O2SAT 94
--- NOTE | 2018-01-12 19:28 | CP.PCM.CON ---
History of Present Illness - History of Present Illness History of Present Illness: 82 year old male with PMH of HTN, rheumatoid arthritis, chronic renal failure came in to complaining initially of left groin pain but has also been complaining of cough with whitish phlegm for the past 2-3 days. He denies fever or chills, no sore throat, no rhinorrhea, no headache or dizziness, no chest pain, no abdominal pain, no diarrhea, no dysuria. CT scan of the abdomen and pelvis did not show acute pathology but CXR suggest pneumonia. Infectious Diseases consult is requested to further evaluate and manage. Review of Systems - Review of Systems All systems: reviewed and no additional remarkable complaints except (as per HPI ) Past Patient History - Infectious Disease Hx of Infectious Diseases: None - Tetanus Immunizations Tetanus Immunization: Unknown - Past Social History Smoking Status: Never Smoked - CARDIAC Hx Cardiac Disorders: Yes Hx Hypertension: Yes - PULMONARY Hx Respiratory Disorders: No - NEUROLOGICAL Hx Neurological Disorder: No - RENAL Hx Chronic Kidney Disease: Yes Hx Renal Failure: Yes Other/Comment: renal insufficiency - ENDOCRINE/METABOLIC Hx Endocrine Disorders: No - HEMATOLOGICAL/ONCOLOGICAL Hx Blood Disorders: Yes Hx Anemia: Yes - INTEGUMENTARY Hx Dermatological Problems: No - MUSCULOSKELETAL/RHEUMATOLOGICAL Hx Musculoskeletal Disorders: Yes Hx Degenerative Joint Disease: Yes Hx Falls: No Hx Gout: Yes - GASTROINTESTINAL Hx Gastrointestinal Disorders: Yes (INGUINAL HERNIA) - GENITOURINARY/GYNECOLOGICAL Hx Genitourinary Disorders: Yes - PSYCHIATRIC Hx Psychophysiologic Disorder: No Hx Substance Use: No - SURGICAL HISTORY Hx Surgeries: No - ANESTHESIA Hx Anesthesia: Yes Hx Anesthesia Reactions: No Hx Malignant Hyperthermia: No Meds Home Medications: Home Medication List Medication Instructions Recorded Confirmed Type Acetaminophen [Tylenol 325mg tab] 650 mg PO Q4H PRN tab 01/12/18 Rx Furosemide [Lasix] 40 mg IV DAILY vial 01/12/18 Rx Iron Polysaccharide [Ferrex-150] 150 mg PO DAILY cap 01/12/18 Rx Magnesium Hydroxide [Milk Of 30 ml PO DAILY PRN udc 01/12/18 Rx Magnesia] Pantoprazole [Protonix EC Tab] 40 mg PO 0600 ect 01/12/18 Rx SulfaSALAzine [Azulfidine] 500 mg PO BID tab 01/12/18 Rx amLODIPine [Norvasc] 5 mg PO DAILY tab 01/12/18 Rx traMADol [Ultram] 50 mg PO TID PRN tab 01/12/18 Rx Allergies/Adverse Reactions: Allergies Allergy/AdvReac Type Severity Reaction Status Date / Time No Known Allergies Allergy Verified 01/10/18 11:56 - Medications Medications: Current Medications Amlodipine Besylate (Norvasc) 5 mg PO DAILY [facility] Last Admin: 01/11/18 09:28 Dose: 5 mg Furosemide (Lasix) 40 mg IV DAILY [facility] Last Admin: 01/11/18 09:29 Dose: 40 mg Azithromycin (Zithromax 500mg In Ns) 500 mg in 250 mls @ 167 mls/hr IVPB DAILY LJ PRN Reason: Protocol Cefepime HCl (Maxipime 1gm) 1 gm in 100 mls @ 100 mls/hr IVPB Q24H LJ PRN Reason: Protocol Stop: 01/20/18 22:46 Last Admin: 01/12/18 00:17 Dose: 100 mls/hr Pantoprazole Sodium (Protonix Ec Tab) 40 mg PO 0600 [facility] Last Admin: 01/12/18 05:34 Dose: 40 mg Polysaccharide Iron Complex (Ferrex-150) 150 mg PO DAILY [facility] Last Admin: 01/11/18 09:28 Dose: 150 mg Physical Exam - Constitutional Appears: Non-toxic, Chronically Ill - Head Exam Head Exam: NORMAL INSPECTION - Neck Exam Neck exam: Negative for: Meningismus - Respiratory Exam Respiratory Exam: Decreased Breath Sounds - Cardiovascular Exam Cardiovascular Exam: +S1, +S2 - GI/Abdominal Exam GI & Abdominal Exam: Soft. absent: Tenderness Results - Vital Signs Recent Vital Signs: Last Vital Signs Temp 98.8 F 01/11/18 23:59 Pulse 85 01/12/18 05:07 Resp 20 01/11/18 23:59 BP 160/76 H 01/12/18 00:18 Pulse Ox 99 01/11/18 23:59 - Labs Result Diagrams: 01/12/18 05:30 01/12/18 05:30 Labs: Laboratory Results - last 24 hr 01/09/18 01/11/18 01/11/18 20:30 05:30 05:30 WBC 6.7 D RBC 2.88 L Hgb 9.4 L D Hct 27.6 L MCV 95.8 D MCH 32.6 MCHC 34.1 RDW 17.0 H Plt Count 159 MPV 10.8 ESR 142 H Sodium 138 Potassium 3.9 Chloride 101 Carbon Dioxide 25 Anion Gap 16 BUN 66 H Creatinine 5.7 H Est GFR ( Amer) 12 Est GFR (Non-Af Amer) 10 Random Glucose 85 Calcium 9.3 Total Bilirubin 0.4 AST 30 ALT 20 Alkaline Phosphatase 44 Total Protein 6.2 Albumin 3.3 Globulin 2.9 Albumin/Globulin Ratio 1.1 PTH Intact Whole Molec 240 H Urine Color Urine Appearance Urine pH Ur Specific [place] Urine Protein Urine Glucose (UA) Urine Ketones Urine Blood Urine Nitrate Urine Bilirubin Urine Urobilinogen Ur Leukocyte Esterase Urine RBC Urine WBC Ur Epithelial Cells Urine Bacteria 01/11/18 01/12/18 23:14 05:30 WBC 8.0 RBC 2.98 L Hgb 9.9 L Hct 28.7 L MCV 96.3 MCH 33.2 MCHC 34.5 RDW 16.1 H Plt Count 180 MPV 10.2 ESR Sodium Potassium Chloride Carbon Dioxide Anion Gap BUN Creatinine Est GFR ( Amer) Est GFR (Non-Af Amer) Random Glucose Calcium Total Bilirubin AST ALT Alkaline Phosphatase Total Protein Albumin Globulin Albumin/Globulin Ratio PTH Intact Whole Molec Urine Color Yellow Urine Appearance Clear Urine pH 6.0 Ur Specific [place] 1.025 Urine Protein >=300 H Urine Glucose (UA) 250 H Urine Ketones Negative Urine Blood Moderate H Urine Nitrate Negative Urine Bilirubin Negative Urine Urobilinogen 0.2 Ur Leukocyte Esterase Small H Urine RBC 2 - 5 Urine WBC 15 - 20 Ur Epithelial Cells 0 - 2 Urine Bacteria Small Assessment & Plan - Assessment and Plan (Free Text) Plan: Assessment consider sepsis due to left sided pneumonia HTN rheumatoid arthritis chronic renal failure Plan Started the patient on a dose of IV Vancomycin and started cefepime and Zithromax pending blood, sputum cx, PCT; reviewed CXE will monitor clinically
--- NOTE | 2018-01-12 23:18 | PN ---
DATE: 01/12/2018 SUBJECTIVE: The patient is seen lying in bed. He is awake. He is alert. He feels better today. He is less short of breath. He is not using any oxygen. PHYSICAL EXAMINATION: GENERAL: Elderly male lying in bed. VITAL SIGNS: Blood pressure 153/82, heart rate 81, respiratory rate 20, temperature 99.3, T-max is 100.3. HEENT: Normocephalic, atraumatic, positive pallor. NECK: Supple, no JVD. LUNGS: Bilateral equal air entry, bilateral equal expansion, no rales. CARDIAC: S1 and S2, regular rate and rhythm, no murmur, no rub. ABDOMEN: Obese, distended, soft, nontender, bowel sounds present. EXTREMITIES: No lower extremity edema. INTAKE AND OUTPUT: 1670/2915 LABORATORY DATA: WBC 8, hemoglobin 9.9, hematocrit 29, platelets 180. Sodium 137, potassium 3.8, chloride 98, CO2 25, BUN 73, creatinine 5.9, glucose 90, calcium 9.2, albumin 3.5. Repeat urinalysis; yellow, clear, pH 6.0, specific gravity 1.025, protein greater than 300, glucose 250, blood moderate, rheumatoid factor of 47 IU/ml. CCP greater than 250, complements normal, ASHLYN negative. Chest x-ray; left upper lobe infiltrate, underlying pulmonary vascular congestion. ASSESSMENT/PLAN: 1. Acute kidney injury superimposed on chronic kidney disease stage IV. 2. Nephrotic-range proteinuria. 3. History of rheumatoid arthritis. 4. Hypertension. 5. Hyperlipidemia. 6. Severe anemia. 7. History of benign prostatic hypertrophy. PLAN: 1. No uremic signs and symptoms at this time. Therefore, no plans for renal replacement therapy. 2. A 24-hour urine for protein and creatinine clearance. 3. Continue empiric antibiotics for pneumonia. 4. Continue to diurese cautiously. 5. Continue to monitor very closely. Lucy Thomson MD
--- NOTE | 2018-01-13 22:39 | DS ---
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 He has hypertension and rheumatoid arthritis. He has been taking methotrexate for years and recently approximately one or two years ago developed worsening renal insufficiency. He is followed by renal mergers and acquisitions consultant for over the past several months, in fact was last seen in August with creatinine around 2.6 as his baseline. He was treated with conservative measures and renal protection. Seems to be doing well until he presented to the office one week before this admission complaining of some shortness of breath and generalized volume overload anasarca. He was treated with increased dose of Lasix, seen a few days later, the edema had improved, but repeat labs shows his creatinine which had gone up to 4 is now up to 5.7. The patient deferred admission at that point, but a few days later, he was more weak, more short of breath, and agreed to come to the emergency room. In the emergency room, he was volume overloaded with creatinine over 5. He was admitted to telemetry floor, a Bustos catheter was placed because on CT of the abdomen, the bladder appeared distended and this would certainly help us to rule out any obstructive uropathy. COURSE OF HOSPITAL STAY: The patient was admitted to the monitoring bed because of the volume overload status, seen by his manager graphic Dr. Malone, treated with diuretics. Had a chest x-ray, there is a question of infiltrate versus bilateral effusions and volume overload; however, the patient ran fevers of 101. So, he was cultured and started on antibiotics. He improved quite a bit the following day, and is today ready for transfer to transitional care unit. We will be able to discontinue the Bustos catheter, discontinue telemetry, provide some milk of magnesia for constipation, get him out of bed, engage in physical therapy and order a repeat chest x-ray to follow up on that infiltrate versus effusion and volume overload (CHF from renal failure). ready for TCU and I will follow him there as well as renal mergers and acquisitions consultant will follow him there. FINAL DISCHARGE DIAGNOSES: 1. Acute renal failure. 2. Chronic renal failure. 3. Fever with possible infiltrate or pneumonia. 4. Rheumatoid arthritis. 5. Hypertension. Jagdish Paige MD [facility] # [id number]
[2018-01-16 05:52] LABS: ANCA SCREEN NEGATIVE (NEGATIVE)
== END 2018-01-12 18:50 | DRG 682 ==
LOC: ED 14:31 → ERH 17:09 → 3RNO 01-10 11:23
PROVIDERS: ADMIT Internal Medicine; ATTEND Internal Medicine
PROC: 3E0F7GC Introduction of Other Therapeutic Substance into Respiratory Tract, Via Natural or Artificial Opening (ICD-10-PCS; principal; 2018-01-10)
DX: N17.9 Acute kidney failure, unspecified (principal); J18.9 Pneumonia, unspecified organism; N18.4 Chronic kidney disease, stage 4 (severe); I12.9 Hypertensive chronic kidney disease with stage 1 through stage 4 chronic kidney disease, or unspecified chronic kidney disease; M06.9 Rheumatoid arthritis, unspecified; M10.9 Gout, unspecified; D63.1 Anemia in chronic kidney disease; N25.81 Secondary hyperparathyroidism of renal origin; M51.36 Other intervertebral disc degeneration, lumbar region; N40.0 Benign prostatic hyperplasia without lower urinary tract symptoms; N28.1 Cyst of kidney, acquired; E87.70 Fluid overload, unspecified; E78.5 Hyperlipidemia, unspecified; K40.90 Unilateral inguinal hernia, without obstruction or gangrene, not specified as recurrent

== ENCOUNTER 2018-01-12 18:50 | Inpatient (IN) | payer MEDICARE, OTHER ==
[2018-01-12] MEDS ORDERED: Magnesium Hydroxide Susp 30 ml UD PO PRN (19:54)
[2018-01-13] MEDS: Pantoprazole 40 mg EC Tab PO SCH (05:30)
[2018-01-13] MEDS: Azithromycin 500MG/NS 250ml 500 MG/250 ML BAG IVPB SCH (05:31)
[2018-01-13] MEDS: Cefepime 1gm in NS 100ml 1 GM/100 ML BAG IVPB SCH (05:31)
[2018-01-13 07:31] LABS: HEMOGLOBIN 10.1 g/dL (14.0-18.0); MEAN CELL VOLUME 94.5 fl (80.0-105.0); MEAN CORPUSCULAR HEMOGLOBIN 32.6 pg (25.0-35.0); MEAN CORPUSCULAR HGB CONC 34.5 g/dl (31.0-37.0); MEAN PLATELET VOLUME 10.2 fl (7.0-11.0); RBC 3.1 10^6/uL (3.5-6.1); RED CELL DISTRIBUTION WIDTH 15.6 % (11.5-14.5)
[2018-01-13 07:46] LABS: ALB/GLOB RATIO 1.2 (1.1-1.8); ALBUMIN 3.7 g/dL (3.0-4.8); CALCIUM 9.3 mg/dL (8.4-10.5)
[2018-01-13] MEDS: Iron Complex Polysacch 150mg Cap PO SCH (09:28)
[2018-01-13 20:46] LABS: URINE CREATININE 40.5 mg/dL
--- NOTE | 2018-01-13 21:31 | PN ---
DATE: 01/13/2018 SUBJECTIVE: The patient was seen on Monday morning in room 302, bed 1 of the [facility] of [facility]. He is sitting out of bed in a chair, comfortable, awake, alert and clear. He feels much better. He looks clinically improved. He is not short of breath, not tachypneic. He states he was walking with physical therapy without difficulty. Followup chest x-ray shows improvement of volume overload and effusions although the pulmonary vasculature remains congestive. PHYSICAL EXAMINATION: LUNGS: Sounds are good in right and left, hoarse breath sounds and rales have improved dramatically. ABDOMEN: Feels a bit protuberant. EXTREMITIES: Really show no edema. IMPRESSION: [id number] renal failure, rheumatoid arthritis, hypertension. PLAN: Continue on TCU, IV Lasix, follow labs periodically and we will discuss with Renal senior sales consultant. Jagdish Paige MD
--- NOTE | 2018-01-13 23:54 | CON ---
DATE: 01/13/2018 CHIEF COMPLAINT: Cough and shortness of breath times about 1-day duration. LOCATION: Patient in bed, in no acute distress. Patient was seen this morning in room 313; he has been moved to 302. HISTORY OF PRESENT ILLNESS: This is an 82-year-old male with past medical history of hypertension, rheumatoid arthritis, and chronic renal failure. Initially came in for left groin pain, also has been complaining of cough and whitish phlegm for 2 days' duration. He did not have any fevers and no headache. No abdominal pain. No diarrhea or constipation. REVIEW OF SYSTEMS: A 12 point review of systems was performed. PAST MEDICAL HISTORY: Significant for chronic renal failure, rheumatoid arthritis, and hypertension. Patient is a never smoker. PAST SURGICAL HISTORY: Noncontributory. MEDICATIONS: Patient's home medications are noted to include iron and Lasix and Tylenol. ALLERGIES: PATIENT HAS NO KNOWN ALLERGIES. PHYSICAL EXAMINATION: VITAL SIGNS: Patient has a temperature of 100.3, heart rate of 92, respiratory rate of 24, blood pressure is 120/70, and oxygen saturation was 94%. HEENT: Unremarkable. NECK: Supple. LUNGS: Have decreased breath sounds. HEART: Normal S1 and S2. ABDOMEN: Soft, nontender. No rebound. No guarding. No masses. LABORATORY DATA: Laboratory examination revels the patient's white count is 8000, hemoglobin of 10, platelets of 184. Chemistry reveals a BUN of 80, creatinine of 5.7, procalcitonin is 0.4. Urinalysis is noted, immunology is noted. Serology, HIV is negative, urine for Legionella is negative. Blood culture is negative. Sputum cultures are pending. ASSESSMENT AND PLAN: An 82-year-old male with hypertension, rheumatoid arthritis, chronic renal failure, who was admitted with cough and positive chest x-ray, hypoxia, fevers, tachycardia. 1. Severe sepsis with left healthcare-associated pneumonia, hypertension, rheumatoid arthritis, and chronic renal failure. Having intermittent vancomycin and cefepime and Zithromax. Pending weaver-cultures. Initial workup results were followed closely with you. Nando Clemens MD [facility] # [id number]
--- NOTE | 2018-01-14 00:35 | CON ---
DATE: 01/13/2018 REASON FOR CONSULTATION: Anemia, hyponatremia, hypokalemia. HISTORY OF PRESENT ILLNESS: An 82-year-old male known to me from recent evaluation on the medical site where the patient was admitted with shortness of breath, cough, dyspnea on exertion, acute kidney injury. He was found to have pneumonia. He was found to have decompensated congestive heart failure. Etiology of his acute kidney injury was not entirely clear. The patient was treated with IV antibiotics. He was treated with Lasix. He is now transferred to the Transitional Care Unit. Consultation is requested today because of hyponatremia, hypokalemia, and anemia. PAST MEDICAL AND SURGICAL HISTORY Hypertension, hypertensive nephrosclerosis, chronic kidney disease stage III/IV, BPH, rheumatoid arthritis, acute kidney injury, chronic anemia. FAMILY HISTORY: Hypertension and stroke in the family. SOCIAL HISTORY: No smoking, no alcohol use, no IV drug abuse. ALLERGIES: NO KNOWN DRUG ALLERGIES. MEDICATIONS AT HOME: Had been Flomax, amlodipine, Symbicort, Lasix, and allopurinol. REVIEW OF SYSTEMS: Decreased cough, decreased shortness of breath, still with dyspnea on exertion. Rest unremarkable. PHYSICAL EXAMINATION: GENERAL: Elderly male lying in bed. VITAL SIGNS: Blood pressure 148/70, heart rate 80, respiratory rate 20, temperature 99, T-max 99. HEENT: Normocephalic, atraumatic, positive pallor. NECK: Supple, no JVD. LUNGS: Bilateral equal entry, bilateral equal expansion. CARDIAC: S1 and S2, regular rate and rhythm, no murmur, no rub. ABDOMEN: Obese, distended, soft, nontender, bowel sounds present. EXTREMITIES: No lower extremity edema. LABORATORY DATA: WBC 8, hemoglobin 10, hematocrit 29, platelets 184. Sodium 134, potassium 3.7, chloride 98, CO2 of 22, BUN 80, creatinine 5.7, glucose 106, calcium 9.3. AST 28, ALT 18, albumin 3.7. CURRENT MEDICATIONS: Sulfasalazine 500 b.i.d., Lasix 40 IV daily, Maxipime 1 g daily, amlodipine 5 mg daily, Protonix, Tylenol, Ultram, and Zithromax. ASSESSMENT: 1. Acute kidney injury superimposed on chronic disease stage IV, etiology of acute kidney injury is acute tubular necrosis. 2. Severe anemia, status post blood transfusion. 3. Mild hyponatremia, secondary to volume overload and diuretic use. 4. Mild hypokalemia. 5. History of rheumatoid arthritis. 6. Pneumonia. 7. Congestive heart failure. PLAN: 1. Continue antibiotics. 2. Continue to diurese, cautiously. 3. Monitor daily electrolytes. 4. Avoid nephrotoxins. 5. A 24-hour urine for protein creatinine clearance. Lucy Thomson MD
[2018-01-14] MEDS: Azithromycin 500MG/NS 250ml 500 MG/250 ML BAG IVPB SCH (05:17)
[2018-01-14] MEDS: Cefepime 1gm in NS 100ml 1 GM/100 ML BAG IVPB SCH (05:17)
[2018-01-14] MEDS: Pantoprazole 40 mg EC Tab PO SCH (05:21)
[2018-01-14 07:10] LABS: HEMOGLOBIN 9.6 g/dL (14.0-18.0); MEAN CELL VOLUME 95.2 fl (80.0-105.0); MEAN CORPUSCULAR HGB CONC 34.7 g/dl (31.0-37.0); MEAN PLATELET VOLUME 10.7 fl (7.0-11.0); RBC 2.91 10^6/uL (3.5-6.1); RED CELL DISTRIBUTION WIDTH 15.3 % (11.5-14.5)
[2018-01-14] MEDS: Iron Complex Polysacch 150mg Cap PO SCH (09:28)
[2018-01-14 16:36] LABS: IRON 38 ug/dL (45-180); TOTAL IRON BINDING CAPACITY 195 ug/dL (261-462)
[2018-01-14 16:47] LABS: % IRON SATURATION 20 % (20-55)
--- NOTE | 2018-01-14 18:27 | PN ---
DATE: 01/14/2018 SUBJECTIVE: The patient is seen sitting in chair. He is awake. He is alert. He is comfortable. He denies any chest pain. He denies any shortness of breath. PHYSICAL EXAMINATION: GENERAL: Elderly male sitting in chair. VITAL SIGNS: Blood pressure 164/95, heart rate 82, respiratory rate 20, temperature 97.1. HEENT: Normocephalic, atraumatic, positive pallor. NECK: Supple, no JVD. LUNGS: Bilateral equal air entry, bilateral equal expansion, minimal rales. CARDIAC: S1 and S2, regular rate and rhythm, no murmur, no rub. ABDOMEN: Soft, nondistended, nontender, bowel sounds present. EXTREMITIES: No extremity edema. INTAKE AND OUTPUT: Not charted. LABORATORY DATA: WBC 7, hemoglobin 9.6, hematocrit 27.7, platelets 196. No chemistry today. A 24-hour urine shows protein of 5724, creatinine clearance 8 mL/minute, serum creatinine 5.7. CURRENT MEDICATIONS: Lasix 40 IV daily, cefepime 1 g, amlodipine 5, Protonix 40, Tylenol, tramadol, Zithromax. ASSESSMENT AND PLAN: 1. Acute kidney injury superimposed on chronic kidney disease stage III/IV, creatinine has plateaued, no change in the last 72 hours. 2. Anemia of chronic kidney disease. 3. Hypertension. 4. Rheumatoid arthritis, the patient was on sulfasalazine. 5. Etiology of acute kidney injury is acute tubular necrosis, (?) secondary to sulfasalazine. PLAN: 1. Creatinine clearance is 8 mL/minute, if renal function does not improve, will need dialysis. 2. Patient is not uremic at this time. We will wait for another 1 week before beginning discussion regarding dialysis. 3. Monitor H&H. 4. Continue Lasix 40 IV daily 5. Discontinue sulfasalazine. Lucy Thomson MD
--- NOTE | 2018-01-15 00:30 | PN ---
DATE: 01/14/2018 SUBJECTIVE: Ildefonso is in room 302, bed 1 this Monday morning, feeling comfortable, engaging in the activities of the transitional care unit. OBJECTIVE: Labs from yesterday are holding steady with a creatinine of 5.7. I will order morning labs for tomorrow. ASSESSMENT AND PLAN: Case was discussed with Dr. Thomson, the renal salesforce consultant. We are not looking at dialysis at this point, but using Lasix to comfortably diurese him. He is feeling much better. His chest x-ray is showing improvement. I will repeat the x-ray in another day or 2 to see if that infiltrate noted earlier was in fact a bacterial infectious infiltrate versus fluid volume overload related to his renal insufficiency. Jagdish Paige MD
[2018-01-15] MEDS: Cefepime 1gm in NS 100ml 1 GM/100 ML BAG IVPB SCH (05:15)
[2018-01-15] MEDS: Pantoprazole 40 mg EC Tab PO SCH (05:15)
[2018-01-15] MEDS: Azithromycin 500MG/NS 250ml 500 MG/250 ML BAG IVPB SCH (05:17)
[2018-01-15 07:16] LABS: HEMOGLOBIN 9.8 g/dL (14.0-18.0); MEAN CELL VOLUME 94.9 fl (80.0-105.0); MEAN CORPUSCULAR HGB CONC 34.8 g/dl (31.0-37.0); MEAN PLATELET VOLUME 10.3 fl (7.0-11.0); RBC 2.97 10^6/uL (3.5-6.1); RED CELL DISTRIBUTION WIDTH 15.5 % (11.5-14.5)
[2018-01-15 07:56] LABS: CALCIUM 9.5 mg/dL (8.4-10.5)
--- NOTE | 2018-01-15 10:07 | PN ---
DATE: 01/14/2018 SUBJECTIVE: Patient is in bed, was seen earlier this morning in room 302. OBJECTIVE: VITAL SIGNS: Temperature is 97, blood pressure is 160/90, respiratory rate of 20, heart rate of 82. HEENT: Unremarkable. NECK: Supple. LUNGS: Have decreased breath sounds. HEART: Normal S1, S2. ABDOMEN: Soft, nontender. LABORATORY EXAMINATION: Reveals a white count of 7000, hemoglobin of 9, platelets of 196. Chemistries reveals a BUN of 80, creatinine of 5.7. is noted. Microbiology. IMPRESSION AND PLAN: An 82-year-old with hypertension, rheumatoid arthritis, chronic renal failure with cough and positive tachycardia with severe sepsis with left-sided healthcare-associated pneumonia in a patient with hypertension, rheumatoid arthritis, chronic renal failure, on intermittent vancomycin, cefepime, Zithromax, day #2. Pending culture and clinical response. Patient's blood and urine cultures and hospital were negative and sputum culture normal madi. Patient did have a procalcitonin of 0.4 on the . We will follow with you. Nando Clemens MD
[2018-01-15] MEDS: Iron Complex Polysacch 150mg Cap PO SCH (10:30)
[2018-01-15] MEDS ORDERED: Darbepoetin Alfa 60 mcg/ml Inj SC ONE (11:12)
--- NOTE | 2018-01-15 12:28 | RAD ---
HISTORY: f/u on infiltrate COMPARISON: 01/12/2018 TECHNIQUE: Chest PA and lateral FINDINGS: LUNGS: There is a patchy infiltrate in the left upper lobe. This is unchanged. PLEURA: No significant pleural effusion identified. No pneumothorax apparent. CARDIOVASCULAR: Mild cardiomegaly OSSEOUS STRUCTURES: No significant abnormalities. VISUALIZED UPPER ABDOMEN: Normal. OTHER FINDINGS: None. IMPRESSION: No change in left upper lobe infiltrate
--- NOTE | 2018-01-15 17:41 | PN ---
DATE: 01/15/2018 SUBJECTIVE: The patient is seen sitting in chair. He is awake. He is alert. He reports he was very nauseous earlier. Did not vomit. He also complains of two large, black bowel movements. He denies any fever, chills. He complains of left lower quadrant pain. PHYSICAL EXAMINATION: GENERAL: Elderly male, sitting in chair. VITAL SIGNS: Blood pressure 164/93, heart rate 82, respiratory rate 20, temperature 98.4. HEENT: Normocephalic, atraumatic. NECK: Supple, no JVD. LUNGS: Bilateral equal air entry, bilateral equal expansion, no rales. CARDIAC: S1 and S2, regular rate and rhythm, no murmur, no rub. ABDOMEN: Distended, soft, nontender, bowel sounds present. EXTREMITIES: No lower extremity edema. INTAKE AND OUTPUT: 940/850. LABORATORY DATA: WBC 7, hemoglobin 9.8, hematocrit 28, platelets 195. Sodium 137, potassium 3.8, chloride 99, CO2 20, BUN 84, creatinine 5.8, glucose 97, calcium 9.7, phosphorus 7.6, magnesium 2.2, iron saturation 20, iron 38, ferritin 761. Creatinine clearance 8. Urine protein 5724. Rheumatoid factor 47. CCP greater than 250, complements normal, ASHLYN negative. ANCA pending. PTH 240. ASSESSMENT: 1. Acute kidney injury superimposed on chronic kidney disease stage 4. 2. Severe anemia, the patient is complaining of black stools, ? gastrointestinal blood loss. 3. Severe secondary hyperparathyroidism. 4. Severe rheumatoid arthritis. 5. Nephrotic range proteinuria. 6. Nausea. ? uremic symptoms. PLAN: 1. Discussed with the patient, will likely need dialysis soon. 2. Check stool occults. 3. Consider GI evaluation. 4. Start calcium acetate. 5. Start Hectorol. We will discuss need for dialysis with primary capacity planning manager. Lucy Thomson MD
--- NOTE | 2018-01-15 21:39 | CP.PCM.PN ---
Subjective - Date & Time of Evaluation Date of Evaluation: 01/15/18 Time of Evaluation: 12:10 - Subjective Subjective: Feeling better, less cough, no nausea or diarrhea. Objective - Vital Signs/Intake and Output Vital Signs (last 24 hours): Temp Pulse Resp BP Pulse Ox 98.6 F 83 20 143/75 95 01/14/18 16:00 01/14/18 16:00 01/14/18 16:00 01/14/18 16:00 01/14/18 16:00 Intake and Output: 01/14/18 01/15/18 18:59 06:59 Intake Total 400 540 Output Total 850 Balance 400 -310 - Medications Medications: Current Medications Acetaminophen (Tylenol 325mg Tab) 650 mg PO Q4H PRN PRN Reason: Pain, Mild (1-3) Amlodipine Besylate (Norvasc) 5 mg PO DAILY [facility] Last Admin: 01/14/18 09:35 Dose: Not Given Furosemide (Lasix) 40 mg IV DAILY [facility] Last Admin: 01/14/18 09:34 Dose: 40 mg Azithromycin (Zithromax 500mg In Ns) 500 mg in 250 mls @ 167 mls/hr IVPB 0600 LJ PRN Reason: Protocol Last Admin: 01/15/18 05:17 Dose: 167 mls/hr Cefepime HCl (Maxipime 1gm) 1 gm in 100 mls @ 100 mls/hr IVPB 0600 LJ PRN Reason: Protocol Last Admin: 01/15/18 05:15 Dose: 100 mls/hr Magnesium Hydroxide (Milk Of Magnesia) 30 ml PO DAILY PRN PRN Reason: Constipation Pantoprazole Sodium (Protonix Ec Tab) 40 mg PO 0600 [facility] Last Admin: 01/15/18 05:15 Dose: 40 mg Polysaccharide Iron Complex (Ferrex-150) 150 mg PO DAILY [facility] Last Admin: 01/14/18 09:28 Dose: 150 mg Tramadol HCl (Ultram) 50 mg PO TID PRN PRN Reason: Pain, moderate (4-7) Last Admin: 01/14/18 21:53 Dose: 50 mg - Labs Labs: 01/14/18 06:30 01/13/18 18:00 - Constitutional Appears: Chronically Ill - Head Exam Head Exam: NORMAL INSPECTION - Neck Exam Neck Exam: absent: Meningismus - Respiratory Exam Respiratory Exam: Decreased Breath Sounds - Cardiovascular Exam Cardiovascular Exam: +S1, +S2 - GI/Abdominal Exam GI & Abdominal Exam: Soft. absent: Tenderness Assessment and Plan - Assessment and Plan (Free Text) Plan: Assessment consider sepsis due to left sided pneumonia HTN rheumatoid arthritis chronic renal failure Plan continue cefepime and Zithromax day 4 to complete 4-7 days of therapy; blood cx are negative; reviewed CXR will continue to monitor clinically
[2018-01-16] MEDS: Cefepime 1gm in NS 100ml 1 GM/100 ML BAG IVPB SCH (05:13)
[2018-01-16] MEDS: Pantoprazole 40 mg EC Tab PO SCH (05:13)
[2018-01-16 07:07] LABS: BASO # 0.01 K/mm3 (0.0-2.0); BASO % 0.1 % (0.0-3.0); EOS # 0.3 (0.0-0.7); EOS % 4.3 % (1.5-5.0); GRAN # 5.14 (1.4-6.5); GRAN % 67.8 % (50.0-68.0); HEMOGLOBIN 10.5 g/dL (14.0-18.0); LYMPH # 1.4 (1.2-3.4); LYMPH % 18.3 % (22.0-35.0); MEAN CELL VOLUME 95.3 fl (80.0-105.0); MEAN CORPUSCULAR HEMOGLOBIN 33.1 pg (25.0-35.0); MEAN CORPUSCULAR HGB CONC 34.8 g/dl (31.0-37.0); MEAN PLATELET VOLUME 10.5 fl (7.0-11.0); MONO # 0.7 (0.1-0.6); MONO % 9.5 % (1.0-6.0); RBC 3.17 10^6/uL (3.5-6.1); RED CELL DISTRIBUTION WIDTH 15.3 % (11.5-14.5); WHITE BLOOD COUNT 7.6 10^3/ul (4.5-11.0)
[2018-01-16 07:10] LABS: CALCIUM 9.8 mg/dL (8.4-10.5)
[2018-01-16] MEDS: Iron Complex Polysacch 150mg Cap PO SCH (10:19)
--- NOTE | 2018-01-16 14:44 | PN ---
DATE: SUBJECTIVE: The patient is currently seen in rehab in the TCU. He has been doing relatively well. Presently, he has no uremic symptoms. His creatinine remains stable at 5.8. The patient has had lengthy discussions with my partner, Dr. Thomson and with me today about the need for close renal followup upon discharge and the likelihood of progressing onto end-stage renal disease. He appears to have no reversible etiology to his renal failure. MEDICATIONS: Medication list reviewed. The patient is currently on iron, Hectorol, Lasix, milk of magnesia, Norvasc, Protonix, Renagel, Tylenol, Ultram p.r.n. and Zithromax. OBJECTIVE: VITAL SIGNS: Blood pressure 156-169 systolic, diastolic 77-91. Heart rate 82, temperature 98.4, respiratory rate 20, pulse ox 97%. HEENT: Shows him to be normocephalic, atraumatic. Conjunctivae are pink. Sclerae are nonicteric. NECK: Supple. No neck vein distention. CHEST: Clear to auscultation and percussion. No rales. No rhonchi or wheezing. CARDIOVASCULAR: Shows a normal S1, S2. No S3. No S4. No murmurs, rubs. ABDOMEN: Soft. Bowel sounds are normal. No rebound. No guarding. EXTREMITIES: Show trace edema of his lower extremity bilaterally. No cyanosis or clubbing. LABORATORY DATA AND IMAGING: CBC: White blood cell count today 7.6, hemoglobin 10.5 with a platelet count 223,000. Chemistries today show a stable BUN of 89 with a creatinine of 5.8. Calcium is 9.8. Yesterday's phosphorus was 7.6 with a magnesium of 2.2. Sodium and potassium are normal. 24-hour urines done on acute care showed a creatinine clearance of 8 mL per minute with 5.7 g of protein in the urine. ASSESSMENT: 1. Progression of chronic kidney disease. Presently had chronic kidney disease stage V. There appears to be no reversible etiology. Serologies once again show a rheumatoid factor, which is elevated. Remainder of the serologies are unremarkable or negative. I discussed with the patient the need for close renal followup upon discharge. We will continue to talk to the patient about renal replacement therapy. I will have him attend the pre end-stage renal disease classes. 2. History of anemia. Unclear whether the patient is having any gastrointestinal bleeding. He denies it today. Hemoglobin is 10.5. The patient should continue Aranesp and iron. 3. History of secondary hyperparathyroidism. Phosphorus level is 7.6. The patient will continue binder therapy and a renal diet. 4. History of hypertension. We need to avoid angiotensin-converting enzyme inhibitors and angiotensin receptor blockers. The patient should continue on calcium channel moses therapy. He is also on low-dose diuretic therapy. 5. History of gout with no recent attacks. 6. History of benign prostatic hypertrophy. No evidence for obstructive uropathy. 7. History of rheumatoid arthritis. The patient will continue outpatient followup with his yarrow gatherer and avoid all anti-inflammatories. PLAN: 1. Unable to adequately discuss with the patient the need to consider renal replacement therapy as he was in the process of doing physical therapy in the rehab and gym of the TCU, but this discussion should continue and I will discuss it with the patient in the outpatient setting upon discharge. 2. During hospitalization, continue Aranesp therapy along with iron supplementation. 3. Continue renal diet. 4. Continue binder therapy. 5. Avoid any and all nephrotoxic agents. Tirso Malone MD
--- NOTE | 2018-01-16 15:08 | PN ---
DATE: I would like the progress note to be read as follows, if you would be so kind. SUBJECTIVE: The patient is an 82-year-old male who came to the emergency room complaining of left lower quadrant abdominal/groin pain. He was found to be in acute renal failure and was admitted. He has received blood transfusions for severe anemia. He received Lasix for congestive heart failure. After 3 days on 01/12/2018, he was transferred to the Transitional Care Unit. When seen today, he is sitting up on a chair. He was awake, alert and oriented. He denies any abdominal pain while sitting, however, in the process of standing up from the chair, he feels pain in the right groin. However, the pain then subsides and he showed me how he was able to take his walker and walk out into the hallway after leaping free and being quite steady in his gait as well. PHYSICAL EXAMINATION: HEART: Regular. LUNGS: Clear. ABDOMEN: Nontender on palpation. LABORATORY DATA: The morning laboratory showed a white blood cell count to be 7.0, hemoglobin and hematocrit are 9.8 and 28.2 respectively. Sodium is 137, potassium is 3.8, BUN is 84, creatinine is 5.8, blood pressure was 154/97. MEDICATIONS: The patient is currently being treated with Ferrex, Hectorol, Lasix, milk of magnesia as needed, Norvasc 5 mg daily, Protonix 40 mg, Renagel 1600 mg 3 times a day, Tylenol as needed, Ultram p.r.n. pain, and Zithromax 500 mg p.o. every day. PLAN: The patient is being followed on the Transitional Care Unit by Dr. Freedman, the infectious disease specialist as well as Dr. Thomson, the airborne and air delivery specialist. The patient is to be reevaluated in the morning. The current feeling is the patient's renal failure is acute tubular necrosis secondary to sulfasalazine use. Davy Paige MD
--- NOTE | 2018-01-16 22:55 | PN ---
DATE: 01/16/2018 The patient is in TCU, 302, bed 1, this Monday afternoon. He is comfortable, engaging in the activities in the unit, diuresing nicely with IV diuretics. BUN and creatinine remained stable. Case was discussed at great length with Dr. Thomson on Monday, and again today with renal residential property consultant, Dr. Malone. The high probability is that he will need dialysis in the next several months to year with no identifiable cause for this recent acute exacerbation. Jagdish Paige MD
--- NOTE | 2018-01-17 02:25 | PN ---
DATE: SUBJECTIVE: Patient is seen in Transitional Care, in room 302. No fevers. No chills. PHYSICAL EXAMINATION: VITAL SIGNS: Temperature is 98, blood pressure is 160/90, respiratory rate of 20, heart rate of 82. HEENT: Unremarkable. NECK: Supple. LUNGS: Have decreased breath sounds. HEART: Normal S1 and S2. ABDOMEN: Soft and nontender. LABORATORY EXAMINATION: Reveals a white count of 7.6, hemoglobin of 10, platelets of 223. Chemistries reveal a BUN of 89, creatinine of 5.8. Urinalysis is noted and microbiology is noted. ASSESSMENT AND PLAN: This is an 82-year-old male with sepsis with left-sided pneumonia, hypertension, rheumatoid arthritis, chronic renal failure. On Zithromax and cefepime, day number 5; and so far, the cultures are negative; would complete 4 to 7 days of antibiotics. Patient is much improved and the cefepime has been discontinued. Patient is only on p.o. Zithromax at this point. Nando Clemens MD
[2018-01-17] MEDS: Pantoprazole 40 mg EC Tab PO SCH (05:26)
[2018-01-17] MEDS: Iron Complex Polysacch 150mg Cap PO SCH (09:50)
--- NOTE | 2018-01-17 22:17 | CP.PCM.PN ---
Subjective - Date & Time of Evaluation Date of Evaluation: 01/17/18 Time of Evaluation: 12:35 - Subjective Subjective: Breathing much better, no fevers. Much improved cough. Objective - Vital Signs/Intake and Output Vital Signs (last 24 hours): Temp Pulse Resp BP Pulse Ox 98.1 F 75 18 157/90 H 97 01/17/18 16:00 01/17/18 16:00 01/17/18 16:00 01/17/18 16:00 01/17/18 16:00 - Medications Medications: Current Medications Acetaminophen (Tylenol 325mg Tab) 650 mg PO Q4H PRN PRN Reason: Pain, Mild (1-3) Amlodipine Besylate (Norvasc) 5 mg PO DAILY [facility] Last Admin: 01/17/18 09:20 Dose: Not Given Azithromycin (Zithromax) 500 mg PO 0600 [facility] Last Admin: 01/17/18 05:26 Dose: 500 mg Doxercalciferol (Hectorol) 0.5 mcg PO DAILY [facility] Last Admin: 01/17/18 09:50 Dose: 0.5 mcg Furosemide (Lasix) 40 mg IV DAILY [facility] Last Admin: 01/17/18 09:52 Dose: 40 mg Magnesium Hydroxide (Milk Of Magnesia) 30 ml PO DAILY PRN PRN Reason: Constipation Pantoprazole Sodium (Protonix Ec Tab) 40 mg PO 0600 [facility] Last Admin: 01/17/18 05:26 Dose: 40 mg Polysaccharide Iron Complex (Ferrex-150) 150 mg PO DAILY [facility] Last Admin: 01/17/18 09:50 Dose: 150 mg Sevelamer HCl (Renagel) 1,600 mg PO TID [facility] Last Admin: 01/17/18 17:48 Dose: 1,600 mg Tramadol HCl (Ultram) 50 mg PO TID PRN PRN Reason: Pain, moderate (4-7) Last Admin: 01/16/18 15:56 Dose: 50 mg - Labs Labs: 01/16/18 06:15 01/16/18 06:15 - Constitutional Appears: Chronically Ill - Head Exam Head Exam: NORMAL INSPECTION - ENT Exam ENT Exam: Mucous Membranes Moist - Neck Exam Neck Exam: Meningismus - Respiratory Exam Respiratory Exam: Decreased Breath Sounds - Cardiovascular Exam Cardiovascular Exam: +S1, +S2 - GI/Abdominal Exam GI & Abdominal Exam: Soft. absent: Tenderness Assessment and Plan - Assessment and Plan (Free Text) Plan: Assessment consider sepsis due to left sided pneumonia, clinically improving HTN rheumatoid arthritis chronic renal failure Plan continue Zithromax day 6 to complete 7 days of therapy; blood cx are negative; reviewed CXR will continue to monitor clinically
--- NOTE | 2018-01-18 04:43 | PN ---
DATE: 01/17/2018 DAILY PROGRESS NOTE I would like today's progress note to be read as follows, if you would be so kind. SUBJECTIVE: The patient is an 82-year-old male who was admitted with left lower quadrant abdominal/groin pain. He was found to be in acute renal failure also when admitted. During the hospital stay, he received blood transfusions for severe anemia. He received Lasix for congestive heart failure. On 01/12, he was transferred to the Transitional Care Unit for physical therapy. When seen today, he was sitting up in his chair. His is present. He was in good spirits. He did still complain of some left groin/inguinal pain. He is aware of the fact that CAT scan revealed a fat filled hernia in that area. However, the pain is only temporary. It seems to be worse when he is on the process of standing from the seated position. When standing, the pain subsides and the patient is able to ambulate with a walker with no problem. Patient is hoping for a possible discharge to home in the morning. His chronic renal failure seems to be stable with a BUN and creatinine of 89 and 5.8 yesterday. He is being followed by Dr. Malone and Dr. Thomson, the core setter, during his hospital stay. He is also being followed by Infectious Disease specialist, Dr. Freedman, and Dr. Cleemns for possible sepsis and left-sided pneumonia, which had shown earlier this hospitalization as well. At this point, we are continuing with Zithromax. tomorrow should be his last dose. Blood cultures are negative. Patient will be reevaluated in the morning and possibly discharge to home. Dayv Paige MD [facility]ILDA
[2018-01-18] MEDS: Pantoprazole 40 mg EC Tab PO SCH (05:12)
--- NOTE | 2018-01-18 09:00 | PN ---
DATE: 01/17/2018 SUBJECTIVE: The patient is seen walking in the hallway. He is awake. He is alert. He is comfortable. He reports feeling good. He denies any nausea. He denies any bad taste. He denies any chest tightness at this time. PHYSICAL EXAMINATION: GENERAL: Elderly male, walking in the hallway. VITAL SIGNS: Blood pressure 163/90, heart rate 80, respiratory rate 20, temperature 98.6. HEENT: Normocephalic, atraumatic, positive pallor. NECK: Supple, no JVD. LUNGS: Bilateral equal air entry, bilateral equal expansion, no rales. CARDIAC: S1 and S2, regular rate and rhythm, no murmur, no rub. ABDOMEN: Obese, distended, soft, nontender, bowel sounds present. EXTREMITIES: No lower extremity edema. INTAKE AND OUTPUT: Not charted. LABORATORY DATA: No new labs today. BUN 89, creatinine 5.8 yesterday, potassium 3.8, phosphorus 7.6. Stool occult negative. MEDICATIONS: Ferrex, Hectorol 0.5, Lasix 40 IV daily, amlodipine 5, Protonix, Renagel 1600 t.i.d., Tylenol, tramadol, Zithromax. ASSESSMENT: 1. Acute kidney injury superimposed on chronic kidney disease stage IV, creatinine has plateaued, no change in the last 72 hours. 2. Severe anemia. 3. Severe secondary hyperparathyroidism. 4. Severe rheumatoid arthritis. 5. Nephrotic range proteinuria. 6. History of hypertension. 7. History of benign prostatic hypertrophy. 8. History of gout. PLAN: 1. Discussed with the patient will need dialysis soon. The patient says he will think about it. He will speak to his . 2. Will require Aranesp as outpatient. 3. Currently, the patient is in compensated heart failure. Will require Lasix perhaps 40 mg p.o. b.i.d. 4. Continue phosphate binders. 5. Continue vitamin D, Hectorol 0.5 mcg daily. 6. Continue oral iron. 7. Close outpatient followup. 8. Avoid nephrotoxins. 9. Past medical and surgical history, family history, social history, review of systems all reviewed and unchanged unless as mentioned. Lucy Thomson MD [facility] # [id number]
[2018-01-18] MEDS: Iron Complex Polysacch 150mg Cap PO SCH (09:03)
[2018-01-18 09:18] VITALS: BP 175/95
[2018-01-18 16:01] VITALS: PULSE 94; RESP 20; TEMP 97.1; O2SAT 95
--- NOTE | 2018-01-18 18:43 | PN ---
DATE: 01/18/2018 SUBJECTIVE: The patient is seen sitting in chair. He is awake. He is alert. He is comfortable. He denies any nausea or vomiting. Appetite is good. He has no asterixis. PHYSICAL EXAMINATION: GENERAL: Elderly male, sitting in chair. VITAL SIGNS: Blood pressure 175/95, heart rate 94, respiratory rate 20, temperature 97.1. HEENT: Normocephalic, atraumatic, positive pallor. NECK: Supple, no JVD. LUNGS: Bilateral equal air entry, bilateral equal expansion. Extremities: No lower extremity edema. MEDICATIONS: Ferrex 150, Hectorol 0.5, Lasix 40 IV daily, MOM, amlodipine 5, Protonix 40, Renagel 1600 t.i.d., Tylenol, tramadol, Zithromax. ASSESSMENT: 1. Advanced chronic kidney disease stage V. 2. Anemia of chronic kidney disease. 3. Secondary hyperparathyroidism. 4. Hyperphosphatemia. 5. Congestive heart failure. 6. Hypertension. 7. Rheumatoid arthritis. 8. Nephrotic range proteinuria. PLAN: 1. Once again discussed dialysis with the patient, he would like to make the decision as outpatient. 2. Currently, no uremic signs or symptoms. 3. No objection to discharge. 4. Will probably need Lasix 40 mg p.o. b.i.d. to keep him out of failure. 5. Continue phosphate binders. 6. Continue vitamin D. 7. Close followup with Nephrology as outpatient. Lucy Thomson MD
--- NOTE | 2018-01-18 23:16 | PN ---
DATE: 01/18/2018 SUBJECTIVE: The patient is in bed, in no acute distress, was seen in room 302 this morning. PHYSICAL EXAMINATION: VITAL SIGNS: Temperature is 97, blood pressure is 170/90, respiratory rate of 20, heart rate of 94. HEENT: Unremarkable. NECK: Supple. LUNGS: Decreased breath sounds. HEART: Normal S1, S2. ABDOMEN: Soft, nontender. LABORATORY EXAMINATION: Reveals the white count of 7.6, hemoglobin of 10, and platelets of 223. BUN of 89, creatinine of 5.8. Urinalysis is noted. ASSESSMENT AND PLAN: An 82-year-old male, seen earlier this morning in room 302, with sepsis due to left-sided pneumonia, improving antibiotic therapy in a patient with hypertension, rheumatoid arthritis, and renal failure. Nando Clemens MD
--- NOTE | 2018-01-19 21:38 | DS ---
HISTORY OF PRESENT ILLNESS: This is an 82-year-old man, I have known for several years, who presented to the office approximately 2 weeks before admission with worsening renal failure, leg edema, shortness of breath, markedly elevated BUN and creatine from his baseline. He was hospitalized. He was last seen by his renal talent consultant as an outpatient in August with a creatinine of 2.6. Now on admission, his creatinine was 4.7 and up to 5. Workup was done on the medical floor. There was a question of an infiltrate that was treated with an antibiotic as well as aggressive diuresis with Lasix and patient improved nicely. He now comes to the transitional care unit for additional physical therapy and conditioning. This is the discharge summary for the patient stay on the transitional care unit. While in TCU, patient did well, engaged in the activities of the unit, took his medications including Lasix, was followed by me as well as Renal talent consultant. Patient was informed of dialysis and developed eventual need for dialysis most likely in the coming several months. He was hesitant to admit that he will need to go and , asking frequently about alternatives. Doing well, medically stable with marked improvement in the CHF and the leg edema. Patient was ready for discharge to home today. Medications were reconciled. A copy of meds was given to the patient. We will follow up with renal talent consultant regarding renal meds which have turned out to be prohibitively expensive at the local drug store . I will see the patient in one week in the office. FINAL DISCHARGE DIAGNOSES: 1. Acute renal failure on top of chronic renal failure. 2. Rheumatoid arthritis. 3. Deconditioning. 4. Hypertension. Jagdish Paige MD
== END 2018-01-18 16:43 | disposition home or self-care (01) | DRG 871 ==
LOC: TRCU 18:50
PROVIDERS: ADMIT Internal Medicine; ATTEND Internal Medicine
PROC: F07Z9FZ Gait Training/Functional Ambulation Treatment using Assistive, Adaptive, Supportive or Protective Equipment (ICD-10-PCS; principal; 2018-01-13)
PROC: F07M6ZZ Therapeutic Exercise Treatment of Musculoskeletal System - Whole Body (ICD-10-PCS; 2018-01-13)
PROC: F08Z4ZZ Home Management Treatment (ICD-10-PCS; 2018-01-14)
DX: A41.9 Sepsis, unspecified organism (principal); J18.9 Pneumonia, unspecified organism; N17.0 Acute kidney failure with tubular necrosis; I13.2 Hypertensive heart and chronic kidney disease with heart failure and with stage 5 chronic kidney disease, or end stage renal disease; N18.5 Chronic kidney disease, stage 5; E87.1 Hypo-osmolality and hyponatremia; K92.2 Gastrointestinal hemorrhage, unspecified; N25.81 Secondary hyperparathyroidism of renal origin; D63.1 Anemia in chronic kidney disease; E83.39 Other disorders of phosphorus metabolism; E87.6 Hypokalemia; I50.9 Heart failure, unspecified; M06.9 Rheumatoid arthritis, unspecified; N40.0 Benign prostatic hyperplasia without lower urinary tract symptoms; R09.02 Hypoxemia; R65.20 Severe sepsis without septic shock; Y95 Nosocomial condition; Z82.3 Family history of stroke; Z82.49 Family history of ischemic heart disease and other diseases of the circulatory system